=== PATIENT | female | born 1940 | race Two or more races ===

== ENCOUNTER 2017-12-13 15:42 | Emergency (ER) | payer MEDICARE, MEDICAID ==
[~2017-12-13] VITALS: Ht 157.5 cm; Wt 80.0 kg
[2017-12-13] MEDS ORDERED: SODIUM CHLORIDE FLUSH 10ML SYR IVF ONE ×2 (16:00→16:30)
[2017-12-13] MEDS ORDERED: SODIUM CHLORIDE 0.9% 1,000ML IVBOLUS ONE ×2 (16:00→16:30)
[2017-12-13] MEDS ORDERED: ONDANSETRON 2MG/ML, 2ML IVPush ONE ×2 (16:00→16:30)
[2017-12-13] MEDS ORDERED: MORPHINE SULFATE 4 MG/ML, 1ML IVPush PRN (16:30)
[2017-12-13] MEDS ORDERED: ONDANSETRON 2MG/ML, 2ML ONE (16:32)
[2017-12-13] MEDS ORDERED: MORPHINE SULFATE 4 MG/ML, 1ML ONE (16:33)
[2017-12-13 16:34] LABS: BASOPHILS # (AUTO) 0.02 x10^3/uL (0-0.1); BASOPHILS % (AUTO) 0 % (0-1); EOSINOPHILS # (AUTO) 0.01 x10^3/uL (0-0.4); EOSINOPHILS % (AUTO) 0 % (1-7); LYMPHOCYTES # (AUTO) 0.88 x10^3/uL (1-3.4); LYMPHOCYTES % (AUTO) 10 % (22-44); MD NO; MEAN CORPUSCULAR HEMOGLOBIN 28.5 pg (27.0-34.8); MEAN CORPUSCULAR HGB CONC 33.5 g/dL (32.4-35.8); MEAN CORPUSCULAR VOLUME 84.9 fL (80-100); MEAN PLATELET VOLUME 6.5 fL (7.4-10.4); MONOCYTES # (AUTO) 0.24 x10^3/uL (0.2-0.8); MONOCYTES % (AUTO) 3 % (2-9); NEUTROPHILS # (AUTO) 8.05 x10^3/uL (1.8-6.8); NEUTROPHILS % (AUTO) 88 % (42-75); PLATELET COUNT 326 x10^3/uL (130-400); RED CELL DISTRIBUTION WIDTH 14.5 % (9.6-15.2)
[2017-12-13 16:37] LABS: ALBUMIN 3.5 g/dL (3.4-5.0); ANION GAP 12 mmol/L (5-15); CALCIUM 9.3 mg/dL (8.5-10.1); CHLORIDE 103 mmol/L (98-107)
[2017-12-13 16:41] LABS: ALANINE AMINOTRANSFERASE 9 U/L (12-78); ALKALINE PHOSPHATASE 110 U/L (45-117); BILIRUBIN,TOTAL 0.6 mg/dL (0.2-1.0); CREATININE 0.77 mg/dL (0.55-1.02); TOTAL PROTEIN 7.4 g/dL (6.4-8.2)
[2017-12-13] MEDS ORDERED: FAMOTIDINE 20 MG/2 ML ONE (16:42)
[2017-12-13] MEDS ORDERED: FAMOTIDINE 20 MG/2 ML IVPush ONE (17:00)
[2017-12-13] MEDS ORDERED: FAMO20TA37 PO (17:25)
[2017-12-13] MEDS ORDERED: METF500T27 PO (17:25)
[2017-12-13] MEDS ORDERED: SIME125C67 PO (17:25)
[2017-12-13] MEDS ORDERED: LOSA100T7 PO (17:25)
[2017-12-13] MEDS ORDERED: ASPI-496 PO (17:25)
[2017-12-13] MEDS ORDERED: CHLO25TA PO (17:25)
[2017-12-13] MEDS ORDERED: ALPR-475 PO (17:25)
[2017-12-13] MEDS ORDERED: ATOR10TA9 PO (17:25)
[2017-12-13 18:38] VITALS: BP 176/71
== END 2017-12-13 18:41 | disposition home or self-care (01) ==
LOC: ED 16:24
DX: R10.33 Periumbilical pain (principal); R11.2 Nausea with vomiting, unspecified
CPT/HCPCS: 36415; 74021; 80053; 83690; 85025; 96361; 96374; 96375; 99285; J2405; J7030; S0028

== ENCOUNTER 2018-01-19 09:20 | Emergency (ER) | payer MEDICARE, MEDICAID ==
[~2018-01-19] VITALS: Ht 157.5 cm; Wt 76.9 kg
[~2018-01-19 09:20] MED LIST: ALPR-475 PO; ASPI-496 PO; ATOR10TA9 PO; CHLO25TA PO; FAMO20TA37 PO; LOSA100T7 PO; METF500T27 PO; SIME125C67 PO
[2018-01-19] MEDS ORDERED: SODIUM CHLORIDE FLUSH 10ML SYR IVF ONE (10:00)
[2018-01-19] MEDS ORDERED: MORPHINE SULFATE 4 MG/ML, 1ML IVPush PRN ×2 (10:00→11:00)
[2018-01-19] MEDS ORDERED: ONDANSETRON 2MG/ML, 2ML IVPush ONE ×2 (10:00→11:00)
[2018-01-19] MEDS ORDERED: PLEASE ENTER HEIGHT AND WEIGHT MC SCH (10:00)
[2018-01-19 10:13] LABS: BASOPHILS # (AUTO) 0.01 x10^3/uL (0-0.1); BASOPHILS % (AUTO) 0 % (0-1); EOSINOPHILS # (AUTO) 0.01 x10^3/uL (0-0.4); EOSINOPHILS % (AUTO) 0 % (1-7); LYMPHOCYTES % (AUTO) 8 % (22-44); MD NO; MEAN CORPUSCULAR HEMOGLOBIN 27.6 pg (27.0-34.8); MEAN CORPUSCULAR HGB CONC 33.4 g/dL (32.4-35.8); MEAN CORPUSCULAR VOLUME 82.7 fL (80-100); MEAN PLATELET VOLUME 6.3 fL (7.4-10.4); MONOCYTES # (AUTO) 0.28 x10^3/uL (0.2-0.8); MONOCYTES % (AUTO) 3 % (2-9); NEUTROPHILS # (AUTO) 7.42 x10^3/uL (1.8-6.8); NEUTROPHILS % (AUTO) 88 % (42-75); PLATELET COUNT 386 x10^3/uL (130-400); RED BLOOD COUNT 4.93 x10^6/uL (3.82-5.3); RED CELL DISTRIBUTION WIDTH 14.1 % (9.6-15.2)
[2018-01-19 10:27] LABS: ALBUMIN 3.5 g/dL (3.4-5.0); ANION GAP 7 mmol/L (5-15); CALCIUM 9.3 mg/dL (8.5-10.1); CHLORIDE 102 mmol/L (98-107)
[2018-01-19] MEDS ORDERED: MORPHINE SULFATE 4 MG/ML, 1ML ONE (10:31)
[2018-01-19] MEDS ORDERED: ONDANSETRON 2MG/ML, 2ML ONE (10:31)
[2018-01-19 10:32] LABS: ALANINE AMINOTRANSFERASE 13 U/L (12-78); ALKALINE PHOSPHATASE 115 U/L (45-117); BILIRUBIN,TOTAL 0.6 mg/dL (0.2-1.0); CREATININE 0.78 mg/dL (0.55-1.02); TOTAL PROTEIN 7.4 g/dL (6.4-8.2)
[2018-01-19] MEDS ORDERED: OMNIPAQUE 350 MG/ML, 100ML BOTTLE ONE (11:43)
[2018-01-19 13:55] VITALS: BP 128/59
[2018-01-19 14:04] LABS: MICROSCOPIC NOT IND
[2018-01-19 14:07] LABS: CULTURE INDICATED? NO
== END 2018-01-19 13:58 | disposition home or self-care (01) ==
LOC: ED 11:15
DX: R10.84 Generalized abdominal pain (principal); R11.2 Nausea with vomiting, unspecified; Z85.42 Personal history of malignant neoplasm of other parts of uterus
CPT/HCPCS: 36415; 74022; 74177; 80053; 81003; 83690; 85025; 96374; 96375; 99284; J2405; Q9967

== ENCOUNTER 2018-04-30 13:37 | Emergency (ER) | payer MEDICARE, MEDICAID ==
[~2018-04-30] VITALS: Ht 157.5 cm; Wt 77.4 kg
[~2018-04-30 13:37] MED LIST changes: +LISI-167 PO; +LOSA100T14 PO; -LOSA100T7 PO
[2018-04-30 16:27] VITALS: BP 159/59
== END 2018-04-30 16:55 | disposition home or self-care (01) ==
LOC: ED 16:41
DX: S00.12XA Contusion of left eyelid and periocular area, initial encounter (principal); S00.93XA Contusion of unspecified part of head, initial encounter; Z90.710 Acquired absence of both cervix and uterus; Z85.42 Personal history of malignant neoplasm of other parts of uterus; W01.0XXA Fall on same level from slipping, tripping and stumbling without subsequent striking against object, initial encounter; Y93.01 Activity, walking, marching and hiking; Y92.89 Other specified places as the place of occurrence of the external cause; Y99.8 Other external cause status
CPT/HCPCS: 70450; 70486; 99284

== ENCOUNTER 2018-08-01 04:04 | Inpatient (IN) | payer MEDICARE, MEDICAID ==
[~2018-08-01] VITALS: Ht 162.6 cm; Wt 78.6 kg
[2018-08-01] MEDS ORDERED: ONDANSETRON 2MG/ML, 2ML IVPush ONE (04:30)
[2018-08-01] MEDS ORDERED: SODIUM CHLORIDE 0.9% 1,000ML IVBOLUS ONE (04:30)
[2018-08-01] MEDS ORDERED: SODIUM CHLORIDE FLUSH 10ML SYR IVF ONE (04:30)
[2018-08-01] MEDS ORDERED: MORPHINE SULFATE 4 MG/ML, 1ML ONE ×2 (04:34→06:21)
[2018-08-01] MEDS ORDERED: ONDANSETRON 2MG/ML, 2ML ONE (04:34)
[2018-08-01] MEDS: MORPHINE SULFATE 4 MG/ML, 1ML IVPush PRN ×2 (04:37→06:48)
--- NOTE | 2018-08-01 04:54 | NUR ---
PT PRESENTS WITH SISTER WITH C/O SUDDEN ONSET GENERALIZED ABD PAIN WITH N/V. PT WITH HX OF UTERINE CANCER IN 2016. STATES FREQUENT SBO SINCE TREATMENT FOR CANCER. PT IS NOT CURRENTLY UNDER CANCER TX. STATES THIS FEELS SIMILAR TO PAIN IN THE PAST. PT VERY ANXIOUS. ROCKING BACK AND FORTH, MOANING AND SHOUTING. IV ACCESS OBTAINED, LABS DRAWN. PT REQUESTING MORPHINE AND FLUIDS. STATES THIS IS WHAT HELPS. PROVIDER IN TO SEE AND ORDERS RECEIVED. PT MEDICATED PER APR. PT DESAT TO LOW 80S AFTER MORPHINE. PLACED ON 4L NC. PT STATES ALMOST IMMEDIATE RELIEF/DECREASE IN PAIN. NO LONGER ANXIOUS. CALL LIGHT IN REACH.
[2018-08-01 05:07] LABS: BASOPHILS # (AUTO) 0.02 x10^3/uL (0-0.1); BASOPHILS % (AUTO) 0 % (0-1); EOSINOPHILS % (AUTO) 0 % (1-7); LYMPHOCYTES # (AUTO) 0.76 x10^3/uL (1-3.4); LYMPHOCYTES % (AUTO) 9 % (22-44); MD NO; MEAN CORPUSCULAR HEMOGLOBIN 27.1 pg (27.0-34.8); MEAN CORPUSCULAR HGB CONC 32.8 g/dL (32.4-35.8); MEAN CORPUSCULAR VOLUME 82.6 fL (80-100); MEAN PLATELET VOLUME 6.4 fL (7.4-10.4); MONOCYTES # (AUTO) 0.16 x10^3/uL (0.2-0.8); MONOCYTES % (AUTO) 2 % (2-9); NEUTROPHILS # (AUTO) 7.98 x10^3/uL (1.8-6.8); NEUTROPHILS % (AUTO) 90 % (42-75); PLATELET COUNT 353 x10^3/uL (130-400); RED BLOOD COUNT 5.05 x10^6/uL (3.82-5.3); RED CELL DISTRIBUTION WIDTH 15.7 % (9.6-15.2)
--- NOTE | 2018-08-01 05:13 | NUR ---
Report to Ephraim BOWIE.
[2018-08-01 05:18] LABS: ALBUMIN 3.8 g/dL (3.4-5.0); ANION GAP 12 mmol/L (5-15); CALCIUM 9.8 mg/dL (8.5-10.1); CHLORIDE 101 mmol/L (98-107); CREATININE 0.93 mg/dL (0.55-1.02)
[2018-08-01] MEDS ORDERED: OMNIPAQUE 350 MG/ML, 100ML BOTTLE ONE (05:45)
--- NOTE | 2018-08-01 05:48 | NUR ---
REPORT OF PT FROM AZEB CONTE AND ASSUMING CARE OF PT. PT ASLEEP IN [facility] AT THIS TIME; NADN. CALL LIGHT IS WITHIN REACH.
[2018-08-01 06:10] LABS: ALBUMIN 3.8 g/dL (3.4-5.0); BILIRUBIN, DIRECT 0.2 mg/dL (0.1-0.2)
[2018-08-01 06:12] LABS: BILIRUBIN,INDIRECT 0.6 mg/dL (0.0-2.0); BILIRUBIN,TOTAL 0.8 mg/dL (0.2-1.0); TOTAL PROTEIN 7.8 g/dL (6.4-8.2)
--- NOTE | 2018-08-01 06:46 | NUR ---
PT AMBULATES TO RESTROOM. PT PROVIDED UA CUP. PT STATES SHE WAS UNABLE TO UNSCREW LID, SO SHE VOIDED IN TOILET. PT STATES SHE WILL TRY AGAIN LATER. VSS AND UPDATED IN EMR. PT MEDICATED FOR PAIN PER MAR.
[2018-08-01] MEDS ORDERED: MORPHINE SULFATE 4 MG/ML, 1ML IVPush ONE (07:00)
--- NOTE | 2018-08-01 07:28 | NUR ---
BS REPORT OF PT TO AZEB BECKER.
[2018-08-01] MEDS ORDERED: LACTATED RINGERS 1,000 ML IV STA (07:50)
[2018-08-01] MEDS ORDERED: ACETAMINOPHEN 325 MG TABLET PO PRN (08:00)
[2018-08-01] MEDS ORDERED: hydrALAzine 20 MG/ML, 1ML IV PRN (08:00)
[2018-08-01] MEDS ORDERED: POTASSIUM CHLORIDE 60 MEQ in SODIUM CHLORIDE 0.9% 1,000 ML IV ONE (08:00)
[2018-08-01] MEDS ORDERED: ONDANSETRON 2MG/ML, 2ML IVPush PRN (08:00)
[2018-08-01] MEDS ORDERED: morphine SULFATE 10 MG/ML, 1ML IVPush PRN (08:00)
[2018-08-01 08:20] LABS: INTERNATIONAL NORMALIZED RATIO 0.99 (0.93-1.1); PROTHROMBIN TIME 10.4 Seconds (9.6-11.5)
--- NOTE | 2018-08-01 08:24 | NUR ---
ATTEMPTED NG TUBE X 2 PT CONTINUALLY FOUGHT TUBE AND PULLED OUT X 2 AND SAID "SHE CAN NOT DO IT". INFORMED PT RISK AND BENIFITS OF NG TUBE.
[2018-08-01 08:25] LABS: MICROSCOPIC NOT IND
[2018-08-01] MEDS ORDERED: DEXTROSE 50%, 50ML SYRINGE IVPush PRN (08:30)
[2018-08-01] MEDS ORDERED: GLUCAGON 1 MG IM PRN (08:30)
[2018-08-01] MEDS ORDERED: DEXTROSE 4 GM TAB.CHEW PO PRN (08:30)
[2018-08-01] MEDS: INSULIN LISPRO 100 UNITS/ML, PEN SQ-INSULIN SCH ×4 (08:30→20:20)
[2018-08-01] MEDS ORDERED: LABETALOL 5 MG/ML SYRINGE IV PRN (08:30)
[2018-08-01] MEDS ORDERED: hydrALAzine 20 MG/ML, 1ML ONE (08:36)
[2018-08-01 08:44] LABS: CULTURE INDICATED? NO
[2018-08-01 08:46] LABS: FREE T4 (FREE THYROXINE) 1.34 ng/dL (0.76-1.46); THYROID STIMULATING HORMONE 3.12 mIU/L (0.358-3.740)
[2018-08-01] MEDS: MAGNESIUM SULFATE 2 GM in SODIUM CHLORIDE 0.9% 50 ML IV ONE ×2 (09:30→10:50)
[2018-08-01] MEDS: FAMOTIDINE 20 MG/2 ML IVPush SCH ×2 (10:08→20:14)
[2018-08-01] MEDS ORDERED: LOSA100T14 PO (10:50)
[2018-08-01] MEDS ORDERED: INSULIN LISPRO 100 UNITS/ML, PEN SQ-INSULIN SCH (11:00)
[2018-08-01] MEDS: SODIUM CHLORIDE FLUSH 10ML SYR IVF SCH ×2 (11:11→20:15)
[2018-08-01] MEDS ORDERED: MAGNESIUM SULFATE PMX 2GM/50ML 50 ML IV ONE ×2 (11:30)
[2018-08-01] MEDS: LACTATED RINGERS 1,000 ML IV SCH (11:55)
[2018-08-01 14:02] VITALS: BP 138/66
[2018-08-01 19:39] VITALS: BP 148/67
[2018-08-02 02:41] VITALS: BP 139/62
[2018-08-02] MEDS: LACTATED RINGERS 1,000 ML IV SCH ×3 (03:29→19:30)
[2018-08-02] MEDS: INSULIN LISPRO 100 UNITS/ML, PEN SQ-INSULIN SCH ×4 (07:00→20:13)
[2018-08-02 08:30] VITALS: BP 142/61
[2018-08-02] MEDS: SODIUM CHLORIDE FLUSH 10ML SYR IVF SCH ×2 (09:00→20:15)
[2018-08-02] MEDS: FAMOTIDINE 20 MG/2 ML IVPush SCH ×2 (09:00→20:15)
[2018-08-02 09:36] LABS: BASOPHILS # (AUTO) 0.01 x10^3/uL (0-0.1); BASOPHILS % (AUTO) 0 % (0-1); EOSINOPHILS # (AUTO) 0.02 x10^3/uL (0-0.4); EOSINOPHILS % (AUTO) 1 % (1-7); LYMPHOCYTES % (AUTO) 19 % (22-44); MD NO; MEAN CORPUSCULAR HEMOGLOBIN 27.1 pg (27.0-34.8); MEAN CORPUSCULAR HGB CONC 32.4 g/dL (32.4-35.8); MEAN CORPUSCULAR VOLUME 83.4 fL (80-100); MEAN PLATELET VOLUME 6.3 fL (7.4-10.4); MONOCYTES # (AUTO) 0.29 x10^3/uL (0.2-0.8); MONOCYTES % (AUTO) 7 % (2-9); NEUTROPHILS # (AUTO) 3.01 x10^3/uL (1.8-6.8); NEUTROPHILS % (AUTO) 73 % (42-75); PLATELET COUNT 287 x10^3/uL (130-400); RED BLOOD COUNT 4.23 x10^6/uL (3.82-5.3); RED CELL DISTRIBUTION WIDTH 15.9 % (9.6-15.2)
[2018-08-02 09:39] LABS: ALANINE AMINOTRANSFERASE 13 U/L (12-78); ALBUMIN 3.1 g/dL (3.4-5.0); ANION GAP 6 mmol/L (5-15); CALCIUM 8.8 mg/dL (8.5-10.1); CHLORIDE 108 mmol/L (98-107); CREATININE 0.66 mg/dL (0.55-1.02)
[2018-08-02 09:43] LABS: ALKALINE PHOSPHATASE 88 U/L (45-117); BILIRUBIN,TOTAL 0.7 mg/dL (0.2-1.0); CHOL/HDL RATIO 2.5; CHOLESTEROL, TOTAL 134 mg/dL (140-239); HDL CHOL % 40 % (28-40); HDL CHOLESTEROL (DIRECT) 53 mg/dL (40-60); LDL CHOLESTEROL,CALCULATED 58 mg/dL (54-169); LDL/HDL RATIO 1.1 (0.5-3.0); TOTAL PROTEIN 6.4 g/dL (6.4-8.2); TRIGLYCERIDES 114 mg/dL (50-200); VLDL CHOLESTEROL 23 mg/dL (0-25)
[2018-08-02 14:45] VITALS: BP 150/70
[2018-08-02 19:40] VITALS: BP 156/68
[2018-08-03 01:07] VITALS: BP 165/75
[2018-08-03] MEDS: LACTATED RINGERS 1,000 ML IV SCH ×2 (03:09→11:30)
[2018-08-03 06:03] LABS: BASOPHILS # (AUTO) 0.01 x10^3/uL (0-0.1); BASOPHILS % (AUTO) 0 % (0-1); EOSINOPHILS # (AUTO) 0.04 x10^3/uL (0-0.4); EOSINOPHILS % (AUTO) 1 % (1-7); LYMPHOCYTES # (AUTO) 0.72 x10^3/uL (1-3.4); LYMPHOCYTES % (AUTO) 22 % (22-44); MD NO; MEAN CORPUSCULAR HEMOGLOBIN 27.2 pg (27.0-34.8); MEAN CORPUSCULAR HGB CONC 32.5 g/dL (32.4-35.8); MEAN CORPUSCULAR VOLUME 83.6 fL (80-100); MEAN PLATELET VOLUME 6.4 fL (7.4-10.4); MONOCYTES # (AUTO) 0.24 x10^3/uL (0.2-0.8); MONOCYTES % (AUTO) 8 % (2-9); NEUTROPHILS # (AUTO) 2.25 x10^3/uL (1.8-6.8); NEUTROPHILS % (AUTO) 69 % (42-75); PLATELET COUNT 275 x10^3/uL (130-400); RED BLOOD COUNT 4.11 x10^6/uL (3.82-5.3); RED CELL DISTRIBUTION WIDTH 15.9 % (9.6-15.2)
[2018-08-03 06:15] LABS: ALBUMIN 2.8 g/dL (3.4-5.0); ANION GAP 7 mmol/L (5-15); CALCIUM 8.5 mg/dL (8.5-10.1); CHLORIDE 107 mmol/L (98-107)
[2018-08-03 06:21] LABS: ALANINE AMINOTRANSFERASE 10 U/L (12-78); ALKALINE PHOSPHATASE 76 U/L (45-117); BILIRUBIN,TOTAL 0.6 mg/dL (0.2-1.0)
[2018-08-03] MEDS: INSULIN LISPRO 100 UNITS/ML, PEN SQ-INSULIN SCH ×2 (07:00→11:00)
[2018-08-03 08:10] VITALS: BP 178/71
[2018-08-03] MEDS: FAMOTIDINE 20 MG/2 ML IVPush SCH (08:40)
[2018-08-03] MEDS: SODIUM CHLORIDE FLUSH 10ML SYR IVF SCH (08:41)
[2018-08-03] MEDS ORDERED: LOSARTAN 50MG TABLET PO SCH (09:00)
== END 2018-08-03 13:30 | disposition home or self-care (01) | DRG 641 ==
LOC: ED 05:55 → EDIP 06:57 → 3NE 08:57 → DCLOUNGE 08-03 13:25
PROVIDERS: ADMIT Internal Medicine; ATTEND Internal Medicine
DX: E86.0 Dehydration (principal); K56.600 Partial intestinal obstruction, unspecified as to cause; K52.9 Noninfective gastroenteritis and colitis, unspecified; I16.0 Hypertensive urgency; E87.6 Hypokalemia; E78.5 Hyperlipidemia, unspecified; G89.29 Other chronic pain; I10 Essential (primary) hypertension; K43.9 Ventral hernia without obstruction or gangrene; K57.30 Diverticulosis of large intestine without perforation or abscess without bleeding; Z66 Do not resuscitate; Z80.41 Family history of malignant neoplasm of ovary; Z80.42 Family history of malignant neoplasm of prostate; Z85.42 Personal history of malignant neoplasm of other parts of uterus; Z90.710 Acquired absence of both cervix and uterus; Z92.21 Personal history of antineoplastic chemotherapy; Z92.3 Personal history of irradiation; Z79.899 Other long term (current) drug therapy; Z90.49 Acquired absence of other specified parts of digestive tract; Z79.82 Long term (current) use of aspirin; K57.90 Diverticulosis of intestine, part unspecified, without perforation or abscess without bleeding
CPT/HCPCS: 36415; 71045; 74177; 80048; 80053; 80061; 80076; 81003; 82040; 82962; 83690; 83735; 84100; 84439; 84443; 85025; 85610; 93005; 93970; 96374; 96375; G0378; J2405; J3475; J3480; Q9967; J0360; J2270; J3490; J7030; J7120

== ENCOUNTER 2018-10-14 03:38 | Inpatient (IN) | payer MEDICARE, MEDICAID ==
[~2018-10-14] VITALS: Ht 157.5 cm; Wt 80.6 kg
[2018-10-15 07:29] VITALS: BP 123/68
== END 2018-10-15 13:15 | disposition home or self-care (01) | DRG 390 ==
LOC: ED 04:01 → EDIP 07:13 → 3NE 08:00 → DCLOUNGE 10-15 13:07
PROVIDERS: ADMIT Family Medicine; ATTEND Family Medicine
PROC: 0D9670Z Drainage of Stomach with Drainage Device, Via Natural or Artificial Opening (ICD-10-PCS; principal; 2018-10-14)
DX: K91.31 Postprocedural partial intestinal obstruction (principal); E78.5 Hyperlipidemia, unspecified; I10 Essential (primary) hypertension; K57.90 Diverticulosis of intestine, part unspecified, without perforation or abscess without bleeding; Z66 Do not resuscitate; Z80.41 Family history of malignant neoplasm of ovary; Z80.42 Family history of malignant neoplasm of prostate; Z85.42 Personal history of malignant neoplasm of other parts of uterus; Z90.710 Acquired absence of both cervix and uterus; Y83.8 Other surgical procedures as the cause of abnormal reaction of the patient, or of later complication, without mention of misadventure at the time of the procedure
CPT/HCPCS: 36415; 74177; 80053; 81001; 83605; 83690; 83735; 84100; 84443; 85025; 96361; 96374; 96375; 96376; G0378; J1650; J2405; Q9967; J2270; J3475; J3490; J7030

== ENCOUNTER 2019-03-10 22:45 | Inpatient (IN) | payer MEDICARE, MEDICAID ==
[~2019-03-10] VITALS: Ht 157.5 cm; Wt 80.0 kg
[~2019-03-10 22:45] MED LIST changes: -ALPR-475 PO; +ALPR0.5T7 PO
--- NOTE | 2019-03-10 22:49 | NUR ---
pt up to rr with standby assist
[2019-03-10] MEDS ORDERED: LORazepam 2 MG/ML, 1ML IVPush ONE (23:00)
[2019-03-10] MEDS ORDERED: SODIUM CHLORIDE FLUSH 10ML SYR IVF ONE (23:00)
[2019-03-10] MEDS ORDERED: LORazepam 2 MG/ML, 1ML ONE (23:11)
[2019-03-10 23:13] LABS: BASOPHILS # (AUTO) 0.03 x10^3/uL (0-0.1); BASOPHILS % (AUTO) 1 % (0-1); EOSINOPHILS # (AUTO) 0.09 x10^3/uL (0-0.4); EOSINOPHILS % (AUTO) 2 % (1-7); LYMPHOCYTES # (AUTO) 0.97 x10^3/uL (1-3.4); LYMPHOCYTES % (AUTO) 20 % (22-44); MD NO; MEAN CORPUSCULAR HEMOGLOBIN 27.9 pg (27.0-34.8); MEAN CORPUSCULAR HGB CONC 32.7 g/dL (32.4-35.8); MEAN CORPUSCULAR VOLUME 85.4 fL (80-100); MEAN PLATELET VOLUME 6.1 fL (7.4-10.4); MONOCYTES # (AUTO) 0.33 x10^3/uL (0.2-0.8); MONOCYTES % (AUTO) 7 % (2-9); NEUTROPHILS # (AUTO) 3.44 x10^3/uL (1.8-6.8); NEUTROPHILS % (AUTO) 71 % (42-75); PLATELET COUNT 333 x10^3/uL (130-400); RED BLOOD COUNT 4.81 x10^6/uL (3.82-5.3); RED CELL DISTRIBUTION WIDTH 14.5 % (9.6-15.2)
--- NOTE | 2019-03-10 23:16 | NUR ---
pt medicate walter slater
[2019-03-10 23:25] LABS: ALBUMIN 3.4 g/dL (3.4-5.0); ANION GAP 11 mmol/L (5-15); CALCIUM 9.3 mg/dL (8.5-10.1); CHLORIDE 106 mmol/L (98-107); CREATININE 0.83 mg/dL (0.55-1.02)
[2019-03-10 23:29] LABS: TROPONIN I < 0.015 ng/mL (0.000-0.045)
[2019-03-10] MEDS ORDERED: DILTIAZEM 5 MG/ML, 5ML IV ONE (23:30)
[2019-03-10] MEDS ORDERED: DILTIAZEM 125 MG in SODIUM CHLORIDE 0.9% 100 ML IV SCH (23:30)
[2019-03-10] MEDS ORDERED: APIXABAN 5 MG TABLET PO ONE (23:30)
[2019-03-10] MEDS ORDERED: DILTIAZEM 5 MG/ML, 5ML ONE (23:39)
[2019-03-10] MEDS ORDERED: HEPARIN 25,000 UNITS/500ML PMX 500 ML IV PRN (23:45)
[2019-03-10] MEDS ORDERED: HEPARIN 5,000 UNITS/ML, 1ML IV ONE (23:45)
[2019-03-10] MEDS ORDERED: HEPARIN 5,000 UNITS/ML, 1ML IV PRN (23:45)
[2019-03-10 23:48] LABS: INTERNATIONAL NORMALIZED RATIO 0.94 (0.93-1.1)
[2019-03-11] MEDS ORDERED: HEPARIN 5,000 UNITS/ML, 1ML ONE (00:09)
[2019-03-11] MEDS ORDERED: HEPARIN 25,000 UNITS/500ML PMX 500 ML ONE (00:10)
[2019-03-11] MEDS ORDERED: morphine SULFATE 10 MG/ML, 1ML IVPush PRN (00:30)
[2019-03-11] MEDS ORDERED: PROMETHAZINE 25 MG/ML, 1ML IM PRN (00:30)
[2019-03-11] MEDS ORDERED: DOCUSATE 100 MG CAPSULE PO PRN (00:30)
[2019-03-11] MEDS ORDERED: POLYETHYLENE GLYCOL 17 GM PACKET PO PRN (00:30)
[2019-03-11] MEDS ORDERED: ATORVASTATIN 10 MG TABLET PO SCH (00:30)
[2019-03-11] MEDS ORDERED: ONDANSETRON 2MG/ML, 2ML IVPush PRN (00:30)
[2019-03-11] MEDS ORDERED: OXYcodone IR 5MG TABLET PO PRN (00:30)
[2019-03-11] MEDS ORDERED: hydrALAzine 20 MG/ML, 1ML IVPush PRN (00:30)
[2019-03-11] MEDS ORDERED: ONDANSETRON ODT 4 MG PO PRN (00:30)
[2019-03-11] MEDS ORDERED: ACETAMINOPHEN 325 MG TABLET PO PRN (00:30)
[2019-03-11] MEDS ORDERED: BISACODYL 10 MG SUPP PR PRN (00:30)
[2019-03-11 00:56] LABS: FREE T4 (FREE THYROXINE) 1.15 ng/dL (0.76-1.46)
--- NOTE | 2019-03-11 01:08 | NUR ---
DR CLIFTON CALLED AND DISCUSSED PT'S CARDIAZEM DRIP ORDER, ORDER RECEIVED TO CONTINUE CARDIAZEM DRIP AT ORDERED.
[2019-03-11 01:44] VITALS: BP 104/53
[2019-03-11] MEDS: SODIUM CHLORIDE 0.9% 1,000 ML IV SCH ×2 (02:46→09:08)
[2019-03-11 03:41] LABS: TROPONIN I 0.106 ng/mL (0.000-0.045)
[2019-03-11 06:34] VITALS: BP 111/69
[2019-03-11 06:35] LABS: TROPONIN I 0.211 ng/mL (0.000-0.045)
[2019-03-11] MEDS ORDERED: INSULIN LISPRO 100 UNITS/ML, PEN SQ-INSULIN SCH (07:00)
[2019-03-11] MEDS ORDERED: FAMOTIDINE 20 MG TABLET PO SCH (09:00)
[2019-03-11] MEDS ORDERED: LOSARTAN 100 MG TAB PO SCH (09:00)
[2019-03-11] MEDS ORDERED: ASPIRIN 81 MG TABLET EC PO SCH (09:00)
[2019-03-11] MEDS ORDERED: DILTIAZEM 125 MG in SODIUM CHLORIDE 0.9% 100 ML IV SCH (23:30)
[2019-06-25] MEDS ORDERED: AMLO-150 PO (11:56)
[2019-06-25] MEDS ORDERED: METO-282 PO (11:56)
[2019-06-25] MEDS ORDERED: APIX5TAB PO (11:56)
== END 2019-03-11 09:50 | disposition left against medical advice (07) | DRG 309 ==
LOC: ED 23:33 → EDIP 23:34 → ED 23:42 → 5SO 03-11 01:31
PROVIDERS: ADMIT Internal Medicine; ATTEND Internal Medicine
DX: I48.91 Unspecified atrial fibrillation (principal); E87.2 Acidosis; I10 Essential (primary) hypertension; E78.5 Hyperlipidemia, unspecified; E11.9 Type 2 diabetes mellitus without complications; R94.31 Abnormal electrocardiogram [ECG] [EKG]; Z53.21 Procedure and treatment not carried out due to patient leaving prior to being seen by health care provider; Z90.710 Acquired absence of both cervix and uterus; Z90.49 Acquired absence of other specified parts of digestive tract; Z80.41 Family history of malignant neoplasm of ovary; Z80.42 Family history of malignant neoplasm of prostate; Z79.899 Other long term (current) drug therapy
CPT/HCPCS: 36415; 71045; 80048; 82040; 82962; 83036; 83735; 83880; 84439; 84443; 84481; 84484; 85025; 85520; 85610; 93005; 96365; 96375; J1644; J2060; J7030

== ENCOUNTER 2019-09-18 15:04 | Emergency (ER) | payer MEDICARE, MEDICAID ==
[~2019-09-18] VITALS: Ht 162.6 cm; Wt 81.9 kg
[~2019-09-18 15:04] MED LIST changes: +AMLO-150 PO; +APIX5TAB PO; +METO-282 PO
[2019-09-18 15:13] VITALS: BP 180/70
[2019-09-18] MEDS ORDERED: ONDANSETRON ODT 4 MG ONE (15:52)
[2019-09-18] MEDS ORDERED: ONDANSETRON ODT 4 MG PO ONE (16:00)
== END 2019-09-18 16:08 | disposition left against medical advice (07) ==
LOC: ED 15:45
DX: G89.29 Other chronic pain (principal); R10.84 Generalized abdominal pain; R11.2 Nausea with vomiting, unspecified; R19.7 Diarrhea, unspecified; I10 Essential (primary) hypertension; E11.9 Type 2 diabetes mellitus without complications; I48.91 Unspecified atrial fibrillation; Z85.42 Personal history of malignant neoplasm of other parts of uterus
CPT/HCPCS: 99283; Q0162